=== PATIENT | male | born 1970 | race Caucasian/White ===

== ENCOUNTER 2021-11-26 14:51 | Outpatient (CLI) | payer BC | END 2021-11-26 14:52 | disposition home or self-care (01) | LOC: CSHMRI 14:51 | PROVIDERS: ATTEND Orthopaedic Surgery | DX: M23.91 Unspecified internal derangement of right knee (principal); M94.261 Chondromalacia, right knee; M84.351A Stress fracture, right femur, initial encounter for fracture; M76.31 Iliotibial band syndrome, right leg ==